=== PATIENT | male | born 1960 | race Caucasian/White ===

== ENCOUNTER 2016-09-26 17:22 | Emergency (ER) | payer OTHER ==
[2016-09-26 17:36] VITALS: BP 110/74
--- NOTE | 2016-09-26 22:48 | UC ---
Jennifer Serrato SooYoung, scribed for Wilfredo Hutchins MD on 09/26/16 at 1754 . Respiratory Complaint HPI - HPI Summary HPI Summary: A 56 y/o M presents to [facility] [place] with c/o URI onset today. Associated sx: sore throat , nasal congestion, sinus pressure, productive cough, fever maxT of 101 F, chills, dysphagia. No recent exposure to anyone sick. Denies allergies. 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 Smoker, non-drinker. - History of Current Complaint Chief Complaint: UCRespiratory Stated Complaint: COUGH,CONGESTION,ACHES Time Seen by Provider: 09/26/16 17:49 Hx Obtained From: Patient Onset/Duration: Lasting Days - YESTERDAY, Still Present Timing: Constant Severity Initially: Moderate Severity Currently: Severe Pain Intensity: 8 Pain Scale Used: 0-10 Numeric Character: Cough: Productive Associated Signs And Symptoms: Positive: Fever, Chills, URI, Nasal Congestion, Sinus Discomfort - Allergies/Home Medications Allergies/Adverse Reactions: Allergies Allergy/AdvReac Type Severity Reaction Status Date / Time No Known Allergies Allergy Verified 12/17/14 17:35 PMH/Surg Hx/FS Hx/Imm Hx Previously Healthy: No Endocrine History: Diabetes - borderline - Surgical History Surgical History: Yes Surgery Procedure, Year, and Place: APPENDECTOMY A CHILD; RT KNEE SCOPE FOR MENISCUS 30 YERS AGO - Family History Known Family History: Positive: Other - denies FHx Negative: Cardiac Disease, Hypertension - Social History Occupation: Employed Full-time Lives: With Family Alcohol Use: None Substance Use Type: None Smoking Status (MU): Heavy Every Day Tobacco Smoker Household Exposure Type: Cigarettes Review of Systems Constitutional: Fever, Chills ENT: Sore Throat, Other - pos: sinus congestion, nasal congestion, dysphagia Respiratory: Cough All Other Systems Reviewed And Are Negative: Yes Physical Exam Triage Information Reviewed: Yes Vital Signs: Initial Vital Signs Temp 98 F 09/26/16 17:33 Pulse 98 09/26/16 17:33 Resp 18 09/26/16 17:33 BP 110/74 09/26/16 17:33 Pulse Ox 95 09/26/16 17:33 Vital Signs Reviewed: Yes - Additional Comments The patient is well-nourished in no acute distress and in no acute pain. The skin is warm and dry and skin color reflects adequate perfusion. GOOD SKIN TURGOR. HEENT: The head is normocephalic and atraumatic. The pupils are equal and reactive. The conjunctivae are clear and without drainage. Nares are patent and without drainage. Mouth reveals moist mucous membranes and the throat is without erythema and exudate. The external ears are intact. The ear canals are patent and without drainage. The tympanic membranes are intact. BEEFY RED POSTERIOR PHARYNX. RHINORRHEA. Neck is supple with full range of motion and non-tender. There are no carotid bruits. There is no neck vein distension. Respiratory: Chest is non-tender. DECREASED BREATH SOUNDS THROUGHOUT. WHEEZING IN BASES. NO STRIDOR. Cardiovascular: Heart is regular rate and rhythm. There is no murmur or rub auscultated. There is no peripheral edema and pulses are symmetrical and equal. Abdomen: The abdomen is soft and non-tender. There are normal bowel sounds heard in all four quadrants and there is no organomegaly palpated. Musculoskeletal: There is no back pain noted. Extremities are non-tender with full range of motion. There is good capillary refill. There is no peripheral edema or calf tenderness elicited. Neurological: Patient is alert and oriented to person, place and time. The patient has symmetrical motor strength in all four extremities. Cranial nerves are grossly intact. Deep tendon reflexes are symmetrical and equal in all four extremities. Psychiatric: The patient has an appropriate affect and does not exhibit any anxiety or depression. Diagnostic Evaluation - Laboratory O2 Sat by Pulse Oximetry: 95 Respiratory Course/Dx - Course Course Of Treatment: Pt medications reviewed this visit. Elevated BP but has current hypertension diagnosis - Differential Dx/Diagnosis Differential Diagnosis/HQI/PQRI: Bronchitis, Lower Resp Infection, Sinusitis, Other - CHEMICAL PNEUMONITIS Provider Diagnoses: ACUTE BRONCHITIS, SINUSITIS. Discharge - Discharge Plan Condition: Stable Disposition: HOME Prescriptions: Albuterol HFA INHALER* [Ventolin HFA Inhaler*] 2 puff INH Q6H PRN #1 mdi PRN Reason: wheezing Cefuroxime Axetil [Ceftin 500 MG TAB] 500 mg PO BID #20 tab predniSONE TAB* [Deltasone TAB*] 60 mg PO DAILY #15 tab Patient Education Materials: Sinusitis (ED), Acute Bronchitis (ED), Albuterol ( By breathing), Cefuroxime (By mouth), Prednisone (By mouth) Referrals: Pablo Lockwood MD [Primary Care Provider] - The documentation as recorded by the Jennifer quiñonez SooYoung accurately reflects the service I personally performed and the decisions made by me, Wilfredo Hutchins MD.
== END 2016-09-26 18:18 | disposition home or self-care (01) ==
LOC: UCEAST 17:22
DX: J20.9 Acute bronchitis, unspecified (principal); J32.9 Chronic sinusitis, unspecified; F17.210 Nicotine dependence, cigarettes, uncomplicated